=== PATIENT | male | born 1965 | race Caucasian/White ===

== ENCOUNTER 2016-12-26 11:36 | Emergency (ER) | payer OTHER ==
--- NOTE | 2016-12-26 11:49 | CPEKG ---
Heart Rate: 58 RR Interval: 1034 P-R Interval: 144 QRSD Interval: 102 QT Interval: 428 QTC Interval: 421 P [place]: 51 QRS [place]: 71 T Wave [place]: 47 EKG Severity - NORMAL ECG - EKG Impression: SINUS RHYTHM Electronically Signed By: William Nicholas 26-Dec-2016 13:45:43
--- NOTE | 2016-12-26 13:19 | EDPHY ---
H & P Time Seen by Provider: 12/26/16 13:19 HPI/ROS: CHIEF COMPLAINT: Left-sided chest discomfort HISTORY OF PRESENT ILLNESS: Patient did have a pulmonary embolism in 1993 when he flew from [place] to [facility]. At that time he had severe chest pain and was anticoagulated for 3 months has not had symptoms since. Over the last 4 days he describes discomfort in his left upper chest just below his clavicle in the midclavicular line feeling like a "screw tightening" without radiation or shortness of breath. No nausea. It would wax and wane but was never completely gone over the last 4 days and was really continuously present to some extent. Not exertional. Not positional. No recent injury. Not associated with leg swelling or fever. REVIEW OF SYSTEMS: Eye: no change in vision ENT: no sore throat Cardiac: HPI Pulmonary: no cough or SOB Abdomen: no vomiting, diarrhea, abdominal pain Musculoskeletal: no back pain or leg swelling Skin: no rash Neuro: no headache Constitutional: no fever : no urinary symptoms A comprehensive 10 point review of systems is otherwise negative aside from elements mentioned in the history of present illness. PAST MEDICAL HISTORY: Knee arthroscopy in 1989, pulmonary embolism 1993. Hernia surgery. No diabetes, hypercholesterolemia, hypertension. FHX: negative for premature CAD. Social history: Nonsmoker, last air travel was 1 month ago. General Appearance: Alert and conversant, cooperative. Eyes: No scleral icterus. ENT, Mouth: Normal mucous membranes. Respiratory: Normal respiratory effort, breath sounds equal, lungs are clear to auscultation. No crepitus, no tenderness over the left anterior chest wall. Cardiovascular: Regular rate and rhythm. No murmurs. Gastrointestinal: Abdomen is soft and non tender. Neurological: Alert and oriented x3. Normally conversant. Face symmetric, normal movement and sensation in all extremities. Skin: No evidence of zoster over left anterior chest wall. Musculoskeletal: No peripheral edema and no joint swelling. No calf tenderness. No chest wall tenderness. Psychiatric: Not agitated. Emergency Department course/MDM: I think pulmonary embolism is low clinical likelihood, good candidate for D- dimer. Vital signs are normal. Initial EKG and troponin are negative after 4 days of continuous symptoms. I think that acute coronary syndrome would be unlikely. Chest x-ray personally interpreted is negative. 2 hour repeat troponin negative , d-dimer negative. Discussed in detail with patient that no definitive diagnosis, but that my clinical impression is that acute medical or surgical emergent condition is unlikely, safe for discharge. Symptomatic treatment. PCP followup this week. Patient states understanding and agreement with plan. Smoking Status: Current every day smoker Constitutional: Initial Vital Signs Temperature (C) 36.6 C 12/26/16 11:38 Heart Rate 74 12/26/16 11:38 Respiratory Rate 18 12/26/16 11:38 Blood Pressure 128/77 H 12/26/16 11:38 O2 Sat (%) 97 12/26/16 11:38 O2 Delivery Mode Room Air Allergies/Adverse Reactions: No Known Allergies Allergy (Unverified 12/26/16 11:37) Home Medications: Medication Instructions Recorded Sertraline HCl 12/26/16 Medical Decision Making - Diagnostics EKG Interpretation: 12-lead EKG interpreted by me; official reading is in trace master. My interpretation is sinus rhythm, normal intervals, no acute ischemic changes. Imaging Results: Chest xray negative. Imaging: I viewed and interpreted images myself Differential Diagnosis: Differential diagnosis considered for chest pain including but not limited to myocardial ischemia, aortic dissection, pericarditis, pulmonary embolus, chest wall pain, pleural inflammation and pulmonary infectious causes. - Data Points Laboratory Results: Laboratory Results 12/26/16 11:46 12/26/16 11:46 Departure - Departure Disposition: Home, Routine, Self-Care Clinical Impression: Chest pain Condition: Good Instructions: Chest Pain (ED) Referrals: Willy Olvera, [Primary Care Provider] - As per Instructions
[2016-12-26 13:38] LABS: % IMMATURE GRANULYOCYTES 0.4 % (0.0-1.1); ABSOLUTE IMMATURE GRANULOCYTES 0.03 10^3/uL (0.00-0.10); ADD DIFF? NO; ADD MORPH? NO; ADD SCAN? NO; ATYPICAL LYMPHOCYTE FLAG 0 (0-99); FRAGMENT RBC FLAG 0 (0-99); HEMATOCRIT 46.6 % (40.0-51.0); HEMOGLOBIN 15.7 g/dL (13.7-17.5); LEFT SHIFT FLG 0 (0-99); LIPEMIA HEMOLYSIS FLAG 80 (0-99); MEAN CELL HEMOGLOBIN 30.8 pg (27.9-34.1); MEAN CELL HEMOGLOBIN CONCENTR. 33.7 g/dL (32.4-36.7); MEAN CELL VOLUME 91.6 fL (81.5-99.8); PLATELET CLUMPS FLAG 10 (0-99); PLATELET COUNT 196 10^3/uL (150-400); RED BLOOD CELL COUNT 5.09 10^6/uL (4.40-6.38); RED CELL DISTRIBUTION WIDTH 11.9 % (11.5-15.2)
[2016-12-26 13:44] LABS: ANION GAP 14 mEq/L (8-16); CALCIUM 9.9 mg/dL (8.5-10.4); CARBON DIOXIDE 23 mEq/l (22-31); CHLORIDE 105 mEq/L (97-110); CREATININE 0.9 mg/dL (0.7-1.3); GLOMERULAR FILTRATION RATE > 60; GLUCOSE 94 mg/dL (70-100); POTASSIUM 4.4 mEq/L (3.5-5.2); SODIUM 142 mEq/L (134-144)
[2016-12-26 14:10] VITALS: RESP 15; O2SAT 96
[2016-12-26 15:40] VITALS: BP 121/77; PULSE 56; TEMP 98.1
== END 2016-12-26 15:40 | disposition home or self-care (01) ==
DX: R07.9 Chest pain, unspecified (principal); F17.200 Nicotine dependence, unspecified, uncomplicated

== ENCOUNTER → 2017-03-10 | Outpatient (CLI) | payer OTHER | LOC: BMCIMAGING 09:33 | PROVIDERS: ATTEND Family Medicine | DX: M79.644 Pain in right finger(s) (principal) ==